=== PATIENT | female | born 1990 | race Caucasian/White ===

== ENCOUNTER → 2024-03-31 08:03 | Outpatient (REF) | payer OTHER, SELFPAY | LOC: PNTC 08:03 | PROVIDERS: ATTENDING PHYSICIAN Obstetrics & Gynecology | DX: O99.280 Endocrine, nutritional and metabolic diseases complicating pregnancy, unspecified trimester (principal); O99.210 Obesity complicating pregnancy, unspecified trimester | CPT/HCPCS: 76805 ==

== ENCOUNTER 2024-09-14 05:04 | Inpatient (IN) | payer OTHER, SELFPAY ==
[2024-09-14 05:12] VITALS: BMI 36.1
[2024-09-14 05:31] VITALS: BP 143/91
[2024-09-14 07:16] LABS: Hematocrit 38.6 % (37.0-47.0); Hemoglobin 12.9 g/dL (12.0-16.0); Mean Corp Hgb Conc. 33.4 g/dL (33.0-37.0); Mean Corpuscular Volume 83.9 fL (81.0-99.0); Mean Platelet Volume 10.1 fL (7.4-10.4); Platelet Count 196 10^3/uL (130-400); Red Cell Dist. Width 15.5 % (11.5-14.5); White Blood Cell Count 14.5 10^3/uL (4.8-10.8)
[2024-09-14 07:17] LABS: ALT (SGPT) 14 U/L (0-35); AST (SGOT) 17 U/L (14-36); Albumin 3.4 g/dl (3.5-5.0); Alkaline Phosphatase 253 U/L (38-126); Blood Urea Nitrogen 14 mg/dl (7-17); Calcium 9.6 mg/dl (8.4-10.2); Carbon Dioxide 18 mmol/L (22-30); Chloride 106 mmol/L (98-107); Estimated Creatinine Clearance > 125 ml/min; Glucose 95 mg/dl (70-99); Potassium 4.4 mmol/L (3.5-5.1); Sodium 134 mmol/L (135-145); Total Bilirubin 0.5 mg/dl (0.2-1.3); Total Protein 6.5 g/dl (6.3-8.2); eGFR > 60.00
[2024-09-14 07:25] LABS: Protein/creatinine Ratio 0.1; Urine Protein 7 mg/dl
[2024-09-14] MEDS: SYNTHROID 125 MCG PO (07:31)
[2024-09-14] MEDS: LR 1000 IV ×3 (07:31→23:01)
[2024-09-14 08:08] LABS: % Basophils 0.4 % (0-2); % Eosinophils 0.5 % (0-6); % Immature Granulocytes 0.4 % (0-0.5); % Lymphocytes 31.6 % (20.5-51.1); % Monocytes 5.7 % (1.7-9.3); % Neutrophils 61.4 % (42.2-75.2); Absolute Basophils 0.1 10^3/uL (0-0.2); Absolute Eosinophils 0.1 10^3/uL (0-0.7); Absolute Immature Granulocytes 0.1 10^3/uL (0-0.05); Absolute Lymphocytes 4.6 10^3/uL (1.2-3.4); Absolute Monocytes 0.8 10^3/uL (0.1-0.6); Absolute Neutrophils 8.9 10^3/uL (1.4-6.5); Nucleated Red Blood Cells % 0 %
[2024-09-14] MEDS: STADOL 1 MG IV (09:59)
[2024-09-14] MEDS: SUBLIMAZE 100 MCG EPIDURAL (11:52)
[2024-09-14] MEDS: FENTANYL/BUPIVACAINE 100 EPIDURAL ×2 (11:52→20:29)
[2024-09-14] MEDS: PITOCIN 30 UNITS/NSS 500 ML IV (20:00)
[2024-09-15] MEDS: TYLENOL 1000 MG PO (01:12)
[2024-09-15] MEDS: BICITRA 30 ML PO (01:12)
[2024-09-15] MEDS: ANCEF 10 IV (01:12)
[2024-09-15] MEDS: ZITHROMAX INFUSION 250 IV (01:25)
[2024-09-15] MEDS: TORADOL 15 MG IV ×4 (05:02→23:03)
[2024-09-15] MEDS: SYNTHROID 125 MCG PO (05:49)
[2024-09-15] MEDS: PRENATAL PLUS 1 TABLET PO (10:05)
--- NOTE | 2024-09-15 10:27 | W.PN.ANS.POP ---
Anesthesia Post Operative
- Anesthesia Post Op Note
Vital Signs Stable-See Nursing Note: Yes
Airway Patent: Yes
Adequate Pain Control: Yes
Change in Mental Status: No
Current Postoperative Nausea & Vomiting: No
Anesthesia Complications: No
General Anesthetic Recall: No
Unplanned Admission: No
Post Op Hydration Adequate: Yes
[2024-09-16 05:47] LABS: Hematocrit 30.6 % (37.0-47.0); Hemoglobin 10.3 g/dL (12.0-16.0); Mean Corp Hgb Conc. 33.7 g/dL (33.0-37.0); Mean Corpuscular Hgb 28.9 pg (27.0-31.0); Mean Platelet Volume 9.8 fL (7.4-10.4); Platelet Count 196 10^3/uL (130-400); Red Blood Cell Count 3.56 10^6/uL (4.20-5.40); White Blood Cell Count 13.2 10^3/uL (4.8-10.8)
[2024-09-16] MEDS: SYNTHROID 125 MCG PO (06:01)
[2024-09-16] MEDS: MOTRIN 600 MG PO ×3 (06:02→22:06)
[2024-09-16] MEDS: SENOKOT-S 1 TABLET PO (08:40)
[2024-09-16] MEDS: FEOSOL 325 MG PO (08:41)
[2024-09-16] MEDS: PRENATAL PLUS 1 TABLET PO (08:41)
[2024-09-16] MEDS: TYLENOL 650 MG PO ×2 (15:39→22:05)
[2024-09-17] MEDS: MOTRIN 600 MG PO ×3 (04:43→19:14)
[2024-09-17] MEDS: TYLENOL 650 MG PO ×3 (04:43→19:13)
[2024-09-17] MEDS: SYNTHROID 125 MCG PO (06:35)
[2024-09-17] MEDS: SENOKOT-S 1 TABLET PO (09:16)
[2024-09-17] MEDS: PRENATAL PLUS 1 TABLET PO ×2 (09:16→09:17)
[2024-09-17] MEDS: FEOSOL 325 MG PO (09:16)
[2024-09-17] MEDS: MYLICON 80 MG PO (09:16)
[2024-09-18] MEDS: TYLENOL 650 MG PO ×2 (00:20→06:20)
[2024-09-18] MEDS: MOTRIN 600 MG PO ×2 (01:30→08:35)
[2024-09-18] MEDS: SYNTHROID 125 MCG PO (06:18)
[2024-09-18] MEDS: FEOSOL 325 MG PO (08:39)
--- NOTE | 2024-09-18 11:53 | W.DS.TRANS ---
DC Summary - Window Glazier
-
Discharge Instructions:
Discharge Diagnosis/Procedures primary cs
Instructions:
Stand-Alone Forms: LDRP Delivery
Changes to Home Medications: No
Discharge Medications:
DC Medications w/original date entered in [facility]
levothyroxine 125 mcg tablet 125 mcg PO DAILY 09/14/24
prenat.vits,joshua,kda-dxwa-upkva 1 tab PO DAILY 09/14/24
ibuprofen 600 mg tablet 600 mg PO Q6HPRN PRN cramps #90 tabs 09/18/24
Home Medication Changes
Pending Results: No
Total time spent discharging patient (in min): 20
[2024-09-18 17:47] LABS: Syphilis/T. pallidum Ab Reflex Negative (Negative)
== END 2024-09-18 15:21 | disposition home or self-care (01) | DRG 788 ==
LOC: LDRP 05:04
PROVIDERS: Obstetrics & Gynecology; ADMITTING PHYSICIAN Obstetrics & Gynecology; ATTENDING PHYSICIAN Obstetrics & Gynecology
PROC: 4A1HXCZ Monitoring of Products of Conception, Cardiac Rate, External Approach (ICD-10-PCS; 2024-09-14)
PROC: 10D00Z1 Extraction of Products of Conception, Low, Open Approach (ICD-10-PCS; 2024-09-15)
DX: O48.0 Post-term pregnancy (principal); Z37.0 Single live birth; O99.284 Endocrine, nutritional and metabolic diseases complicating childbirth; O99.214 Obesity complicating childbirth; O99.892 Other specified diseases and conditions complicating childbirth; E03.9 Hypothyroidism, unspecified; N80.9 Endometriosis, unspecified; O77.0 Labor and delivery complicated by meconium in amniotic fluid; O62.1 Secondary uterine inertia; O76 Abnormality in fetal heart rate and rhythm complicating labor and delivery; Z79.890 Hormone replacement therapy; Z3A.40 40 weeks gestation of pregnancy
CPT/HCPCS: 88307; 36415; 80053; 82570; 84156; 85025; 85027; 86780; 86850; 86900; 86901